=== PATIENT | female | born 1980 | race African-American/Black ===

== ENCOUNTER 2017-05-16 16:24 | Emergency (ER) | payer OTHER ==
[~2017-05-16] VITALS: Ht 167.6 cm; Wt 83.0 kg
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
== END 2017-05-16 18:44 | disposition home or self-care (01) ==
LOC: CFTX 16:24 → CED 16:24 → CFTX 16:50
DX: S60.222A Contusion of left hand, initial encounter (principal); S60.211A Contusion of right wrist, initial encounter; S00.83XA Contusion of other part of head, initial encounter; H93.12 Tinnitus, left ear; I10 Essential (primary) hypertension; J45.909 Unspecified asthma, uncomplicated; Z98.51 Tubal ligation status; Z87.891 Personal history of nicotine dependence; Y04.0XXA Assault by unarmed brawl or fight, initial encounter; Y92.009 Unspecified place in unspecified non-institutional (private) residence as the place of occurrence of the external cause
CPT/HCPCS: 29125; 70486; 71020; 73110; 73130; 99284